=== PATIENT | male | born 1975 | race African-American/Black ===

== ENCOUNTER 2016-10-18 03:48 | Emergency (ER) | payer SELFPAY ==
[~2016-10-18] VITALS: Ht 182.9 cm; Wt 99.9 kg
[~2016-10-18 03:48] MED LIST: FLEXERIL5 MG PO; MOTRIN600 MG PO
[2016-10-18 05:21] LABS: CHLORIDE 104 mEq/L (99-109); GLUCOSE 117 mg/dL (70-99); POTASSIUM 3.9 mEq/L (3.7-5.4); SODIUM 138 mEq/L (136-147)
[2016-10-18 05:22] LABS: ANION GAP 8 MEQ/L (2-14)
[2016-10-18 05:25] LABS: GFR ESTIMATE (CALCULATED) > 59 mL/min/
[2016-10-18 05:26] LABS: UREA NITROGEN (BUN) 16 mg/dL (9-23)
[2016-10-18] MEDS ORDERED: AUGMENTIN875 MG PO (05:30)
[2016-10-18 05:33] LABS: HEMATOCRIT 45.3 % (38.0-50.0); MCH 27.4 PG (29.0-34.0); MCHC 32.2 G/DL (30.0-36.0); MCV 85.2 FL (86-99); MEAN PLAT.VOLUME 11.3 uM^3 (9.0-12.4); PLATELET COUNT 159 K/uL (156-360); RBC DIS.WIDTH-CV 13.3 % (11.8-14.6); RBC DIS.WIDTH-SD 41.7 % (39-53); RED BLOOD COUNT 5.32 M/uL (4.00-5.50); WHITE BLOOD COUNT 5.2 K/uL (4.1-10.2)
[2016-10-18 05:48] LABS: CREATINE KINASE 176 IU/L (1-294)
[2016-10-18 06:10] LABS: INTERNAL CONTROL VALID? YES; MONOSPOT (MONONUCLEOSIS SEROL) NEGATIVE
[2016-10-18 06:51] VITALS: BP 172/104
[2016-10-19 10:29] LABS: LYME DISEASE SEROLOGY SCREEN NEGATIVE (NEGATIVE)
== END 2016-10-18 06:53 | disposition left against medical advice (07) ==
LOC: EME 03:48
PROVIDERS: Emergency Medicine
DX: R51 Headache (principal); R50.9 Fever, unspecified
CPT/HCPCS: 70450; 70486; 80048; 82550; 83605; 85027; 86308; 86618; 87040; 99281; 99284; J0696; J1885; J7030; J7050

== ENCOUNTER 2017-06-25 22:50 | Emergency (ER) | payer SELFPAY ==
[~2017-06-25] VITALS: Ht 188 cm; Wt 105.5 kg
[~2017-06-25 22:50] MED LIST changes: +AUGMENTIN875 MG PO
[2017-06-26 00:48] LABS: HEMATOCRIT 42.1 % (38.0-50.0); MCH 28.4 PG (29.0-34.0); MCHC 33.3 G/DL (30.0-36.0); MCV 85.4 FL (86-99); RBC DIS.WIDTH-CV 13.2 % (11.8-14.6); RBC DIS.WIDTH-SD 41.6 % (39-53); RED BLOOD COUNT 4.93 M/uL (4.00-5.50); WHITE BLOOD COUNT 6.2 K/uL (4.1-10.2)
[2017-06-26 01:08] LABS: CHLORIDE 106 mEq/L (99-109); POTASSIUM 3.7 mEq/L (3.7-5.4); SODIUM 144 mEq/L (136-147)
[2017-06-26 01:10] LABS: GLUCOSE 115 mg/dL (70-99)
[2017-06-26 01:14] LABS: GFR ESTIMATE (CALCULATED) > 59 mL/min/ (58.99-99999)
[2017-06-26 01:15] LABS: UREA NITROGEN (BUN) 21 mg/dL (9-23)
[2017-06-26] MEDS ORDERED: PREDNISONE10 M1 PO (01:28)
[2017-06-26] MEDS ORDERED: ZYRTEC10 M3 PO (01:28)
[2017-06-26] MEDS ORDERED: ERYTHROMYC1 APPLICAT BOTH EYES (01:28)
[2017-06-26 01:58] VITALS: BP 191/118
[2017-06-26 05:46] LABS: PLAT.SUFFICIENCY ADEQUATE; PLATELET CLUMPS PRESENT - PLATELET COUNT APPEARS ADQ.
== END 2017-06-26 02:06 | disposition home or self-care (01) ==
LOC: EME 22:50
PROVIDERS: Nurse Practitioner Acute Care
DX: J30.89 Other allergic rhinitis (principal); I10 Essential (primary) hypertension
CPT/HCPCS: 80048; 83655 90; 85027; 99281; 99285; J7512